=== PATIENT | female | born 1960 ===

== ENCOUNTER 2021-01-16 02:58 | Observation (INO) | payer MEDICARE, MEDICAID ==
[2021-01-16 04:39] VITALS: BMI 26.6
[2021-01-16 06:07] LABS: SARS-CoV-2 NAA Rapid Test Not Detected (NotDetected)
[2021-01-16] MEDS ORDERED: Calcium Carbonate 500 MG ChewTAB PO PRN (08:21)
[2021-01-16] MEDS ORDERED: Acetaminophen 325 MG TAB PO PRN (08:21)
[2021-01-16] MEDS ORDERED: Acetaminophen 650 MG Suppository PR PRN (08:21)
[2021-01-16] MEDS ORDERED: Ondansetron PF 4 MG/2 ML Vial IVP PRN (08:21)
[2021-01-16] MEDS ORDERED: Ondansetron ODT 4 MG TAB PO PRN (08:21)
[2021-01-16] MEDS ORDERED: Nicotine 14 MG PATCH TD PRN (08:24)
[2021-01-16] MEDS ORDERED: Fentanyl 100 MCG/2 ML VIAL SLOW IVP PRN (08:25)
[2021-01-16] MEDS ORDERED: Sodium Chloride 0.9% 1,000 ML IV SCH (08:30)
[2021-01-16 08:39] LABS: #Eosinphils 0.2 thou/uL (0.0-0.7); #Lymphocytes 2.3 thou/uL (1.20-3.40); #Monocytes 0.5 thou/uL (0.11-0.59); #Neutrophils 5.1 thou/uL (1.40-6.50); %Basophils 0.6 % (0.0-1.0); %Eosinophils 2.4 % (0.0-10.0); %Lymphocytes 28.7 % (21.0-51.0); %Monocytes 6.2 % (0.0-10.0); %Neutrophils 62.2 % (42.0-75.0); Hemoglobin 14.9 g/dL (12.0-16.0); Mean Corpuscular HGB CONC 32.9 g/dL (32.0-36.0); Mean Corpuscular Volume 94.3 fL (78.0-98.0); Mean Platelet Volume 7.9 fL (7.4-10.4); Platelet Count 245 thou/uL (130-400); RBC Distribution Width 12.6 % (11.5-14.5); White Blood Cell (WBC) Count 8.1 thou/uL (4.8-10.8)
[2021-01-16 08:55] LABS: Lactic Acid 1.3 mmol/L (0.5-2.2)
[2021-01-16 08:58] LABS: ALT (SGPT) 21 U/L (8-55); AST (SGOT) 19 U/L (5-34); Albumin 3.7 g/dL (3.4-4.8); Alkaline Phosphatase 80 U/L (40-110); Anion Gap 9 mmol/L (10-20); BUN (Urea Nitrogen) 10 mg/dL (9.8-20.1); Bilirubin, Total 0.4 mg/dL (0.2-1.2); Calc. Creatinine Clearance 93 mL/min (70-130); Calcium 9.1 mg/dL (7.8-10.44); Carbon Dioxide 27 mmol/L (23-31); Chloride 107 mmol/L (98-107); Globulin 2.7 g/dL (2.4-3.5); Glucose 104 mg/dL (80-115); Magnesium 2.2 mg/dL (1.6-2.6); Phosphorus 3.3 mg/dL (2.3-4.7); Potassium 4.1 mmol/L (3.5-5.1); Protein, Total 6.4 g/dL (5.8-8.1); Sodium 139 mmol/L (136-145)
[2021-01-16] MEDS ORDERED: Pantoprazole 40 MG VIAL IVP SCH (09:00)
[2021-01-16] MEDS ORDERED: Famotidine/PF 20 mg/2ml Vial SLOW IVP SCH (09:00)
[2021-01-16 09:09] LABS: Troponin I Less than 0.010 ng/mL (< 0.028)
[2021-01-16 11:35] VITALS: BP 145/71; TEMP 98.5
[2021-01-16] MEDS ORDERED: Morphine 2 MG/ML VIAL SLOW IVP PRN (11:56)
== END 2021-01-16 15:20 | disposition home or self-care (01) ==
LOC: SJJU 04:19 → INTOOBSV 04:19
PROVIDERS: ADMIT Internal Medicine; ATTEND Internal Medicine
DX: K43.2 Incisional hernia without obstruction or gangrene (principal); I10 Essential (primary) hypertension; J44.9 Chronic obstructive pulmonary disease, unspecified; E78.5 Hyperlipidemia, unspecified; E78.00 Pure hypercholesterolemia, unspecified; N32.81 Overactive bladder; N39.41 Urge incontinence; F17.210 Nicotine dependence, cigarettes, uncomplicated; Z20.822 Contact with and (suspected) exposure to COVID-19; Z79.899 Other long term (current) drug therapy; Z90.721 Acquired absence of ovaries, unilateral; Z98.890 Other specified postprocedural states
CPT/HCPCS: 80053; 83605; 83735; 84100; 84484; 85025; U0002; U0005; 36415; C9113